=== PATIENT | male | born 1950 | race Caucasian/White ===

== ENCOUNTER 2017-07-15 17:35 | Observation (INO) | payer OTHER ==
[~2017-07-15] VITALS: Ht 185.4 cm; Wt 83.9 kg
[2017-07-15 17:40] VITALS: BP 142/71; PULSE 71; RESP 16; TEMP 97.9; O2SAT 96
[2017-07-15] MEDS ORDERED: ATOR10TA15 PO (18:51)
--- NOTE | 2017-07-15 19:14 | PD ---
HPI Chief Complaint: Chest Pain Time Seen by Provider: 18:44 Travel History International Travel<30 days: No Contact w/Intl Traveler<30days: No Traveled to known affect area: No History of Present Illness HPI 66yo M with HLD presents to the ED with multiple complaints. Said last night he started having right sided chest pain at 7 or 8pm that was sharp and radiated to right neck and shoulder. Associated with sob, nausea, diaphoresis. Pain is improved now but still there. Also with left calf pain since last night. Denies any fever, cough, n/v, focal weakness or numbness. Pt said he does have abdominal pain for months and has not seen anyone about it. Pt also said he had a study 6 years ago for possible PE but does not know the results of it and thinks it is fine. PFSH Past Medical History High Cholesterol: Yes Tetanus Vaccination: Unknown Influenza Vaccination: No Past Surgical History Appendectomy: Yes Social History Alcohol Use: Yes (occassionally ) Tobacco Use: No Substance Use: No Allergies-Medications (Allergen,Severity, Reaction): Coded Allergies: penicillin G (Unverified Allergy, Severe, 07/15/17) iodine (Verified Allergy, Unknown, 07/15/17) Reported Meds & Prescriptions Reported Meds & Active Scripts Active Reported Atorvastatin (Atorvastatin Calcium) 10 Mg Tab 10 Mg PO HS Review of Systems Except as stated in HPI: all other systems reviewed are Neg Physical Exam Narrative GENERAL: 66yo M not in distress. SKIN: Focused skin assessment warm/dry. HEAD: Atraumatic. Normocephalic. EYES: Pupils equal and round. No scleral icterus. No injection or drainage. ENT: No nasal bleeding or discharge. Mucous membranes pink and moist. NECK: Trachea midline. No JVD. CARDIOVASCULAR: Regular rate and rhythm. No murmur appreciated. RESPIRATORY: No accessory muscle use. Clear to auscultation. Breath sounds equal bilaterally. GASTROINTESTINAL: Abdomen soft, +TTP LLQ. No rebound tenderness or guarding. MUSCULOSKELETAL: LLE: +Calf tenderness to palpation. No edema. Distal pulses intact. Sensation intact. FROM left hip and knee. NEUROLOGICAL: Awake and alert. No obvious cranial nerve deficits. Motor grossly within normal limits. Normal speech. PSYCHIATRIC: Appropriate mood and affect; insight and judgment normal. Data Data Last Documented VS Vital Signs Date Time Temp Pulse Resp B/P (MAP) Pulse Ox O2 Delivery O2 Flow Rate FiO2 07/15/17 20:16 75 18 133/75 (94) 99 Room Air 07/15/17 17:40 97.9 Orders Orders Basic Metabolic Panel (Bmp) (07/15/17 19:05) Complete Blood Count With Diff (07/15/17 19:05) D-Dimer (07/15/17 19:05) Magnesium (Mg) (07/15/17 19:05) Prothrombin Time / Inr (Pt) (07/15/17 19:05) Act Partial Throm Time (Ptt) (07/15/17 19:05) Troponin I (07/15/17 19:05) Chest, Single Ap (07/15/17 19:05) Us Leg Venous Doppler (07/15/17 ) Ct Abd/Pel W/O Iv Contrast (07/15/17 ) Urinalysis - C+S If Indicated (07/15/17 19:07) Aspirin (Aspirin) (07/15/17 20:45) Aspirin Chew (Aspirin Chew) (07/15/17 20:45) Labs Laboratory Tests Test 07/15/17 19:18 07/15/17 19:22 White Blood Count 5.9 TH/MM3 Red Blood Count 4.67 MIL/MM3 Hemoglobin 13.6 GM/DL Hematocrit 41.4 % Mean Corpuscular Volume 88.7 FL Mean Corpuscular Hemoglobin 29.1 PG Mean Corpuscular Hemoglobin Concent 32.8 % Red Cell Distribution Width 12.0 % Platelet Count 191 TH/MM3 Mean Platelet Volume 7.9 FL Neutrophils (%) (Auto) 58.5 % Lymphocytes (%) (Auto) 24.0 % Monocytes (%) (Auto) 7.4 % Eosinophils (%) (Auto) 8.2 % Basophils (%) (Auto) 1.9 % Neutrophils # (Auto) 3.5 TH/MM3 Lymphocytes # (Auto) 1.4 TH/MM3 Monocytes # (Auto) 0.4 TH/MM3 Eosinophils # (Auto) 0.5 TH/MM3 Basophils # (Auto) 0.1 TH/MM3 CBC Comment DIFF FINAL Differential Comment Prothrombin Time 11.0 SEC Prothromb Time International Ratio 1.1 RATIO Activated Partial Thromboplast Time 27.8 SEC D-Dimer Quantitative (PE/DVT) 0.32 MG/L FEU Blood Urea Nitrogen 15 MG/DL Creatinine 0.94 MG/DL Random Glucose 138 MG/DL Calcium Level 8.2 MG/DL Magnesium Level 2.3 MG/DL Sodium Level 139 MEQ/L Potassium Level 3.8 MEQ/L Chloride Level 106 MEQ/L Carbon Dioxide Level 28.5 MEQ/L Anion Gap 5 MEQ/L Estimat Glomerular Filtration Rate 80 ML/MIN Troponin I LESS THAN 0.02 NG/ML Urine Color YELLOW Urine Turbidity CLEAR Urine pH 6.5 Urine Specific [place] 1.012 Urine Protein NEG mg/dL Urine Glucose (UA) NEG mg/dL Urine Ketones NEG mg/dL Urine Occult Blood NEG Urine Nitrite NEG Urine Bilirubin NEG Urine Leukocyte Esterase NEG Urine Squamous Epithelial Cells 0-5 /hpf Microscopic Urinalysis Comment CULT NOT INDICATED MDM Medical Decision Making Medical Screen Exam Complete: Yes Emergency Medical Condition: Yes Interpretation(s) EKG: NSR 66bpm. Normal axis. Q wave III. No ST segment elevation or depression. Differential Diagnosis ACS vs. pneumonia vs. musculoskeletal pain Narrative Course 66yo M with atypical chest pain. Labs reviewed, no leukocytosis. H/H normal. Troponin negative. D-dimer negative. UA negative. CXR negative. CT a/p showed no acute abdominal or pelvic pathology. Enlarge prostate gland. Low density areas in both kidneys. Informed pt to follow up as outpatient. Left lower extremity US showed no DVT. 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 Doherty in six years. I discussed with patient and he agrees with serial EKG and cardiac enzymes in chest pain center. Diagnosis Primary Impression: Chest pain Qualified Codes: R07.9 - Chest pain, unspecified Admitting Information Admitting Physician Requests: Rebeca Piña DO Jul 15, 2017 19:14
[2017-07-15 19:25] VITALS: BP 132/74; PULSE 70; RESP 16; O2SAT 98
[2017-07-15 19:29] LABS: AUTOMATED NEUTROPHIL # 3.5 TH/MM3 (1.8-7.7); BASOPHIL # 0.1 TH/MM3 (0-0.2); BASOPHIL % 1.9 % (0.0-2.0); EOSINOPHIL # 0.5 TH/MM3 (0-0.4); EOSINOPHIL % 8.2 % (0.0-4.0); HEMATOCRIT 41.4 % (39.0-51.0); HEMOGLOBIN 13.6 GM/DL (13.0-17.0); LYMPHOCYTE # 1.4 TH/MM3 (1.0-4.8); MEAN CELL VOLUME 88.7 FL (80.0-100.0); MEAN CORPUSCULAR HEMOGLOBIN 29.1 PG (27.0-34.0); MEAN CORPUSCULAR HGB CONC 32.8 % (32.0-36.0); MEAN PLATELET VOLUME 7.9 FL (7.0-11.0); MONO % 7.4 % (0.0-8.0); MONOCYTE # 0.4 TH/MM3 (0-0.9); NEUT % 58.5 % (16.0-70.0); PLATELET COUNT 191 TH/MM3 (150-450); RED BLOOD COUNT 4.67 MIL/MM3 (4.50-5.90); WHITE BLOOD COUNT 5.9 TH/MM3 (4.0-11.0)
[2017-07-15 19:33] LABS: BILIRUBIN, URINE NEG (NEG); BLOOD, URINE NEG (NEG); GLUCOSE,URINE NEG (NEG); KETONE, URINE NEG (NEG); NITRITE,URINE NEG (NEG); PH, URINE 6.5 (5.0-8.5); URINE LEUKOCYTE ESTERASE NEG (NEG)
[2017-07-15 19:38] LABS: CHLORIDE 106 MEQ/L (98-107); SODIUM (NA) 139 MEQ/L (136-145)
[2017-07-15 19:41] LABS: BICARBONATE 28.5 MEQ/L (21.0-32.0); CALCIUM 8.2 MG/DL (8.5-10.1); GLUCOSE,RANDOM 138 MG/DL (74-106); MAGNESIUM 2.3 MG/DL (1.5-2.5)
[2017-07-15 19:42] LABS: BLOOD UREA NITROGEN 15 MG/DL (7-18)
[2017-07-15 19:44] LABS: URINE COLOR YELLOW (YELLW/STRAW)
[2017-07-15 19:45] LABS: SQUAMOUS EPITHELIAL CELL URINE 0-5 /hpf (0-5)
[2017-07-15 19:45] LABS: CREATININE 0.94 MG/DL (0.60-1.30); GLOMERULAR FILTRATION RATE 80 ML/MIN (>89)
[2017-07-15 19:50] LABS: TROPONIN I LESS THAN 0.02 NG/ML (0.02-0.05)
[2017-07-15 19:59] LABS: INTERNATIONAL NORMALIZED RATIO 1.1 RATIO
--- NOTE | 2017-07-15 20:00 | RADRPT ---
EXAM DATE/TIME: 07/15/2017 19:26 [facility] COMPARISON: No previous studies available for comparison. INDICATIONS : Left lower quadrant pain. ORAL CONTRAST: No oral contrast ingested. RADIATION DOSE: 12.58 CTDIvol (mGy) MEDICAL HISTORY : None SURGICAL HISTORY : Appendectomy. ENCOUNTER: Initial ACUITY: 1 day PAIN SCALE: 6/10 LOCATION: Left lower quadrant TECHNIQUE: Volumetric scanning of the abdomen and pelvis was performed. Using automated exposure control and ad justment of the mA and/or kV according to patient size, radiation dose was kept as low as reasonably achievable to obtain optimal diagnostic quality images. DICOM format image data is available electro nically for review and comparison. The lack of IV contrast limits the diagnosis for certain organ pa thology. FINDINGS: LOWER LUNGS: The visualized lower lungs are clear. LIVER: Homogeneous density without lesion. There is no dilation of the biliary tree. No calcified gallston es. SPLEEN: Normal size without lesion. PANCREAS: Within normal limits. KIDNEYS: Normal in size and shape. There is no mass, stone, or hydronephrosis. There is a 3 cm right parapelv ic cyst along the lower pole. A few small low-density lesions are seen along the peripheral aspect of both kidneys most likely representing cysts. ADRENAL GLANDS: Within normal limits. VASCULAR: There is no aortic aneurysm. BOWEL/MESENTERY: The stomach, small bowel, and colon demonstrate no acute abnormality. There is no free intraperitone al air or fluid. No inflammatory changes are seen. There is some stool throughout the colon. No signi ficant diverticular disease is demonstrated. ABDOMINAL WALL: Within normal limits. RETROPERITONEUM: There is no lymphadenopathy. BLADDER: The urinary bladder is decompressed. No stones are demonstrated. REPRODUCTIVE: The prostate gland measures 5.3 cm. INGUINAL: There is no lymphadenopathy or hernia. MUSCULOSKELETAL: Within normal limits for patient age. CONCLUSION: 1. No acute abdominal or pelvic pathology. 2. 3 cm right parapelvic cyst along the lower pole. 3. A few low-density areas are seen adjacent to both kidneys most likely representing renal cysts. If clinically indicated, a dedicated ultrasound of the kidneys on a nonemergent outpatient basis could be performed for further evaluation. 4. There is diffuse enlargement of the prostate gland measuring 5.3 cm. Collin Pineda MD on July 15, 2017 at 19:52 Board Certified Radiologist. This report was verified electronically.
--- NOTE | 2017-07-15 20:03 | RADRPT ---
EXAM DATE/TIME: 07/15/2017 19:33 [facility] COMPARISON: No previous studies available for comparison. INDICATIONS : Chest pain. MEDICAL HISTORY : None. SURGICAL HISTORY : None. ENCOUNTER: Initial ACUITY: 1 day PAIN SCORE: 4/10 LOCATION: Right chest FINDINGS: A single view of the chest demonstrates the lungs to be symmetrically aerated without evidence of mas s, infiltrate or effusion. The cardiomediastinal contours are unremarkable. Osseous structures are intact. CONCLUSION: Normal examination for a patient of this age. Collin Pineda MD on July 15, 2017 at 20:00 Board Certified Radiologist. This report was verified electronically.
--- NOTE | 2017-07-15 20:05 | RADRPT ---
EXAM DATE/TIME: 07/15/2017 19:42 [facility] COMPARISON: No previous studies available for comparison. INDICATIONS : Left leg pain. MEDICAL HISTORY : Hypercholesterolemia. Anticoagulant therapy, Aspirin 81mg. SURGICAL HISTORY : Appendectomy. ENCOUNTER: Initial ACUITY: 2 months PAIN SCORE: 5/10 LOCATION: Left leg. TECHNIQUE: Venous ultrasound of the leg was performed from the inguinal ligament to the proximal calf. Real-magalie e, color Doppler and spectral tracing, compression and augmentation techniques were used. FINDINGS: There is normal compressibility of the deep venous system from the inguinal region to the proximal ca lf. No echogenic clot is seen in the lumen of the common femoral, femoral, popliteal, and posterior tibial veins. There is a normal response of the venous system to proximal and distal augmentation an d respiration. CONCLUSION: No evidence of DVT. Collin Pineda MD on July 15, 2017 at 20:02 Board Certified Radiologist. This report was verified electronically.
[2017-07-15 20:12] LABS: D-DIMER 0.32 MG/L FEU (0.00-0.50)
[2017-07-15 20:16] VITALS: BP 133/75; PULSE 75; RESP 18; O2SAT 99
[2017-07-15] MEDS ORDERED: ASPIRIN 81 MG CHEW TAB PO ONE (20:45)
[2017-07-15] MEDS ORDERED: ASPIRIN 325 MG TAB PO ONE (20:45)
[2017-07-15 21:09] VITALS: BP 149/88; PULSE 58; RESP 18; O2SAT 98
[2017-07-15] MEDS ORDERED: ONDANSETRON HCL 4 MG/2 ML VIAL IV PUSH PRN (21:15)
[2017-07-15] MEDS ORDERED: ACETAMINOPHEN 500 MG CPLT PO PRN (21:15)
[2017-07-15] MEDS ORDERED: MORPHINE SULFATE 2 MG/ML INJ IV PUSH PRN (21:15)
[2017-07-15] MEDS ORDERED: SODIUM CHLORIDE 0.9% FLUSH 10 ML FLUSH IV FLUSH PRN (21:15)
[2017-07-15] MEDS: SODIUM CHLOR 0.9% 1000 ML INJ 1,000 ML IV SCH (22:34)
[2017-07-15] MEDS: HEPARIN SODIUM - SQ 10,000 UNITS/ML VIAL SQ SCH (22:34)
[2017-07-15 22:45] VITALS: BP 145/68; TEMP 97.9
[2017-07-15 23:00] VITALS: PULSE 60
[2017-07-15 23:16] LABS: TROPONIN I LESS THAN 0.02 NG/ML (0.02-0.05)
[2017-07-16] VITALS: BP 138/78; PULSE 55; RESP 18; TEMP 96.3; O2SAT 96
[2017-07-16 01:25] VITALS: O2SAT 96
[2017-07-16 02:32] LABS: TROPONIN I LESS THAN 0.02 NG/ML (0.02-0.05)
[2017-07-16] MEDS: HEPARIN SODIUM - SQ 10,000 UNITS/ML VIAL SQ SCH ×2 (05:20→14:00)
[2017-07-16 06:32] VITALS: BP 125/68; PULSE 56; RESP 18; TEMP 97.5; O2SAT 95
[2017-07-16] MEDS: SODIUM CHLOR 0.9% 1000 ML INJ 1,000 ML IV SCH (07:03)
[2017-07-16 08:00] VITALS: BP 118/69; PULSE 59; RESP 16; TEMP 96.6; O2SAT 95
[2017-07-16] MEDS ORDERED: SODIUM CHLORIDE 0.9% FLUSH 10 ML FLUSH IV FLUSH SCH (09:00)
--- NOTE | 2017-07-16 10:10 | HHI.HP ---
[facility] Service [facility] Primary Care Physician Hernán Abbasi MD Admission Diagnosis Chest pain Diagnoses: Chief Complaint: Chest pain Travel History International Travel<30 Days: No Contact w/Intl Traveler <30 Da: No Traveled to Known Affected Are: No History of Present Illness Written by Sherlyn Cohen, acting as scribe for Dr. Ferro on 07/16/17 at 10:09. This is a pleasant 66-year-old male patient with unknown medical history of hyperlipidemia who presented to the ED with complaints of chest pain. Patient states that the chest pain started last evening in his right sided chest area around twenty hundred, characterized the pain as sharp in nature and radiates to the right neck and shoulder. Patient does admit to associated shortness of breath, nausea and diaphoresis. Denies any associated vomiting. Patient also complains of left calf pain. States he took an aspirin at home which did not relieve the pain. Denies ever having this pain in the past. At the time of assessment patient states the pain has improved but is still present. Denies any recent illness including fever, cough, nausea or vomiting, abdominal pain or diarrhea. Patient does admit that around seven years ago he was admitted to the hospital for evaluation of PE which was negative. Denies having a previous stress test in the past. Review of Systems Constitutional: DENIES: Fever, Chills Endocrine: DENIES: Heat/cold intolerance Eyes: DENIES: Blurred vision, Diplopia Respiratory: COMPLAINS OF: Shortness of breath, DENIES: Cough Cardiovascular: COMPLAINS OF: Chest pain, DENIES: Palpitations Gastrointestinal: COMPLAINS OF: Nausea, DENIES: Abdominal pain, Black stools, Bloody stools, Constipation, Diarrhea, Vomiting Musculoskeletal: DENIES: Joint pain Integumentary: DENIES: Abnormal pigmentation Hematologic/lymphatic: DENIES: Bruising Immunologic/allergic: DENIES: Eczema Neurologic: DENIES: Abnormal gait Psychiatric: COMPLAINS OF: Anxiety Except as stated in HPI: all other systems reviewed are Neg Past Family Social History Past Medical History Hyperlipidemia Past Surgical History Appendectomy Reported Medications Active Reported Atorvastatin (Atorvastatin Calcium) 10 Mg Tab 10 Mg PO HS Allergies: Coded Allergies: penicillin G (Unverified Allergy, Severe, 07/15/17) iodine (Verified Allergy, Unknown, 07/15/17) Active Ordered Medications Current Medications Medications (Trade) Dose Ordered Sig/Reinaldo Route Start Time Stop Time Status Last Admin Sodium Chloride 1,000 ml @ 100 mls/hr Q10H IV 07/15/17 21:03 07/15/17 22:34 (NS Flush) 2 ml UNSCH PRN IV FLUSH 07/15/17 21:15 (NS Flush) 2 ml BID IV FLUSH 07/16/17 09:00 (Tylenol) 500 mg Q4H PRN PO 07/15/17 21:15 07/16/17 09:49 (Morphine Inj) 2 mg Q4H PRN IV PUSH 07/15/17 21:15 (Zofran Inj) 4 mg Q6H PRN IV PUSH 07/15/17 21:15 (Heparin Inj) 5,000 units Q8HR SQ 07/15/17 22:00 07/15/17 22:34 Family History Maternal medical history significant for blood clot. Denies any significant cardiovascular disease in family history. Social History Denies any tobacco, alcohol or illicit drug use. Physical Exam Vital Signs Vital Signs Date Time Temp Pulse Resp B/P (MAP) Pulse Ox O2 Delivery O2 Flow Rate FiO2 07/16/17 08:00 96.6 59 16 118/69 (85) 95 07/16/17 06:32 97.5 56 18 125/68 (87) 95 07/16/17 01:25 96 21 07/16/17 00:00 96.3 55 18 138/78 (98) 96 07/15/17 23:00 60 07/15/17 22:45 97.9 68 16 145/68 (93) 100 07/15/17 21:09 58 18 149/88 (108) 98 Room Air 07/15/17 20:16 75 18 133/75 (94) 99 Room Air 07/15/17 19:25 70 16 132/74 (93) 98 Room Air 07/15/17 18:54 18 97 Room Air 07/15/17 17:40 97.9 71 16 142/71 (94) 96 Physical Exam GENERAL: Well-nourished, well-developed patient in NAD. SKIN: Warm and dry. No rash. HEAD: Normocephalic. Atraumatic. EYES: Pupils equal and round. No scleral icterus. No injection or drainage. ENT: No nasal bleeding or discharge. Mucous membranes pink and moist. NECK: Supple. Trachea midline. CARDIOVASCULAR: Regular rate and rhythm. S1, S2 noted. No murmur appreciated. No reproducible chest pain to palpation. RESPIRATORY: No accessory muscle use. Clear to auscultation. Breath sounds equal bilaterally. GASTROINTESTINAL: Abdomen soft, non-tender, nondistended. Normoactive bowel sounds x4. MUSCULOSKELETAL: No obvious deformities. Extremities without clubbing, cyanosis , or edema. NEUROLOGICAL: Awake and alert. No obvious cranial nerve deficits. Motor grossly within normal limits. 5/5 muscle strength in bilateral upper and lower extremities. Normal speech. PSYCHIATRIC: Appropriate mood and affect; insight and judgment normal. Laboratory Laboratory Tests Test 07/15/17 19:18 07/15/17 19:22 07/15/17 22:50 07/16/17 01:30 White Blood Count 5.9 Red Blood Count 4.67 Hemoglobin 13.6 Hematocrit 41.4 Mean Corpuscular Volume 88.7 Mean Corpuscular Hemoglobin 29.1 Mean Corpuscular Hemoglobin Concent 32.8 Red Cell Distribution Width 12.0 Platelet Count 191 Mean Platelet Volume 7.9 Neutrophils (%) (Auto) 58.5 Lymphocytes (%) (Auto) 24.0 Monocytes (%) (Auto) 7.4 Eosinophils (%) (Auto) 8.2 Basophils (%) (Auto) 1.9 Neutrophils # (Auto) 3.5 Lymphocytes # (Auto) 1.4 Monocytes # (Auto) 0.4 Eosinophils # (Auto) 0.5 Basophils # (Auto) 0.1 CBC Comment DIFF FINAL Differential Comment Prothrombin Time 11.0 Prothromb Time International Ratio 1.1 Activated Partial Thromboplast Time 27.8 D-Dimer Quantitative (PE/DVT) 0.32 Blood Urea Nitrogen 15 Creatinine 0.94 Random Glucose 138 Calcium Level 8.2 Magnesium Level 2.3 Sodium Level 139 Potassium Level 3.8 Chloride Level 106 Carbon Dioxide Level 28.5 Anion Gap 5 Estimat Glomerular Filtration Rate 80 Troponin I LESS THAN 0.02 LESS THAN 0.02 LESS THAN 0.02 Urine Color YELLOW Urine Turbidity CLEAR Urine pH 6.5 Urine Specific [place] 1.012 Urine Protein NEG Urine Glucose (UA) NEG Urine Ketones NEG Urine Occult Blood NEG Urine Nitrite NEG Urine Bilirubin NEG Urine Leukocyte Esterase NEG Urine Squamous Epithelial Cells 0-5 Microscopic Urinalysis Comment CULT NOT INDICATED Total Creatine Kinase 139 111 Creatine Kinase MB 1.6 1.4 Result Diagram: 07/15/17191707/15/171917 Imaging Last Impressions Chest X-Ray 07/15/171904 Signed Impressions: Service Date/Time: Saturday, July 15, 2017 19:33 - CONCLUSION: Normal examination for a patient of this age. Collin Pineda MD Lower Extremity Ultrasound 07/15/17 0000 Signed Impressions: Service Date/Time: Saturday, July 15, 2017 19:42 - CONCLUSION: No evidence of DVT. Collin Pineda MD Abdomen/Pelvis CT 07/15/17 0000 Signed Impressions: Service Date/Time: Saturday, July 15, 2017 19:26 - CONCLUSION: 1. No acute abdominal or pelvic pathology. 2. 3 cm right parapelvic cyst along the lower pole. 3. A few low-density areas are seen adjacent to both kidneys most likely representing renal cysts. If clinically indicated, a dedicated ultrasound of the kidneys on a nonemergent outpatient basis could be performed for further evaluation. 4. There is diffuse enlargement of the prostate gland measuring 5.3 cm. Collin Pineda MD Septic Shock Reassessment Septic shock perfusion: reassessment completed Caprini VTE Risk Assessment Caprini VTE Risk Assessment: No/Low Risk (score <= 1) Caprini Risk Assessment Model Point Value = 1 Point Value = 2 Point Value = 3 Point Value = 5 Age 41-60 Minor surgery BMI > 25 kg/m2 Swollen legs Varicose veins or History of unexplained or recurrent spontaneous Oral contraceptives or hormone replacement Sepsis (< 1 month) Serious lung disease, including pneumonia (< 1 month) Abnormal pulmonary function Acute myocardial infarction Congestive heart failure (< 1 month) History of inflammatory bowel disease Medical patient at bed rest Age 61-74 Arthroscopic surgery Major open surgery (> 45 min) Laparoscopic surgery (> 45 min) Malignancy Confined to bed (> 72 hours) Immobilizing plaster cast Central venous access Age >= 75 History of VTE Family history of VTE Factor V Leiden Prothrombin [id number] Lupus anticoagulant Anticardiolipin antibodies Elevated serum homocysteine Heparin-induced thrombocytopenia Other congenital or acquired thrombophilia Stroke (< 1 month) Elective arthroplasty Hip, pelvis, or leg fracture Acute spinal cord injury (< 1 month) Prophylaxis Regimen Total Risk Factor Score Risk Level Prophylaxis Regimen 0-1 Low Early ambulation 2 Moderate Order ONE of the following: *Sequential Compression Device (SCD) *Heparin 5000 units SQ BID 3-4 Higher Order ONE of the following medications: *Heparin 5000 units SQ TID *Enoxaparin/Lovenox 40 mg SQ daily (WT < 150 kg, CrCl > 30 mL/min) *Enoxaparin/Lovenox 30 mg SQ daily (WT < 150 kg, CrCl > 10-29 mL/min) *Enoxaparin/Lovenox 30 mg SQ BID (WT < 150 kg, CrCl > 30 mL/min) AND/OR *Sequential Compression Device (SCD) 5 or more Highest Order ONE of the following medications: *Heparin 5000 units SQ TID (Preferred with Epidurals) *Enoxaparin/Lovenox 40 mg SQ daily (WT < 150 kg, CrCl > 30 mL/min) *Enoxaparin/Lovenox 30 mg SQ daily (WT < 150 kg, CrCl > 10-29 mL/min) *Enoxaparin/Lovenox 30 mg SQ BID (WT < 150 kg, CrCl > 30 mL/min) AND *Sequential Compression Device (SCD) Assessment and Plan Problem List: (1) Chest pain ICD Code: R07.9 - Chest pain, unspecified Status: Acute Plan: Patient has been admitted to the chest pain center for observation. Serial EKGs and serial troponins have been ordered for ruling out ACS purposes. Troponin trend flat. EKG reviewed showing normal sinus rhythm, heart rate controlled. No ST changes to indicate ischemia. Continue cardiac telemetry, monitor any arrhythmias. CBC and BMP reviewed essentially unremarkable. Chest x-ray reviewed showing no acute disease. Lipid panel ordered, pending. Follow. Lower extremity ultrasound reviewed showing no DVT. Abdominal pelvis CT reviewed showing no acute abnormality. Showing bilateral renal cysts, encouraged to follow-up in outpatient setting. Patient was given aspirin in the ED. Morphine IV available when necessary as needed for chest pain. Nitroglycerin glycerin sublingual available when necessary. Patient will undergo a treadmill cardiac stress test to further rule out any ischemia if ACS ruled out. Further recommendations and hospitalization will depend on treadmill results. Continue to follow. Patient is stable at this time and agreeable to the plan. Assessment and Plan Patient underwent cardiac treadmill stress test. Images reviewed by on-call microsoft access developer, Dr. Zambrano, who indicated no ischemia. Patient will be discharged home. Patient encouraged to return to the ED if symptoms persist or worsen. Patient is stable at this time and agreeable to the plan. Discussed Condition With This note was transcribed by scribe [Sherlyn Cohen]. I, Dr. Nabil Ferro personally performed the history, physical exam, and medical decision making; and confirmed the accuracy of the information in the transcribed note. Authenticated by Dr. Nabil Ferro on 07/16/17 at 13:44. Problem Qualifiers (1) Chest pain: Qualified Codes: R07.9 - Chest pain, unspecified Sherlyn Cohen Jul 16, 2017 10:10 Nabil Ferro MD Jul 16, 2017 13:44
[2017-07-16 11:09] LABS: CHOLESTEROL/ HDL RATIO 3.17 RATIO; HDL CHOLESTEROL 54.1 MG/DL (40.0-60.0)
[2017-07-16] MEDS ORDERED: NAPR500T2 PO (13:10)
--- NOTE | 2017-07-16 13:10 | HHI.DCPOC ---
Discharge Care Plan Diagnosis: (1) Chest pain Goals to Promote Your Health * To prevent worsening of your condition and complications * To maintain your health at the optimal level Directions to Meet Your Goals Take your medications as prescribed Follow your dietary instruction Follow activity as directed Keep your appointments as scheduled Take your immunizations and boosters as scheduled If your symptoms worsen call your PCP, if no PCP go to Urgent Care Center or Emergency Room Smoking is Dangerous to Your Health. Avoid second hand smoke Call the 24-hour hour crisis hotline for domestic abuse at Sherlyn Cohen Jul 16, 2017 13:10
--- NOTE | 2017-07-16 13:53 | EKG ---
Date Performed: 07/15/2017 Time Performed: 17:44:03 PTAGE: 66 years EKG: Sinus rhythm POSSIBLE INFERIOR MYOCARDIAL INFARCTION BORDERLINE ECG Since PREVIOUS TRACING , no significant change noted PREVIOUS TRACIN07/31/2005 18.14 DOCTOR: Lizabeth Zambrano Interpretating Date/Time 07/16/2017 13:51:31
--- NOTE | 2017-07-16 13:54 | EKG ---
Date Performed: 07/15/2017 Time Performed: 22:38:13 PTAGE: 66 years EKG: SINUS BRADYCARDIA BORDERLINE ECG Since PREVIOUS TRACING , no significant change noted PREVIOUS TRACIN07/15/2017 17.44 DOCTOR: Lizabeth Zambrano Interpretating Date/Time 07/16/2017 13:52:09
--- NOTE | 2017-07-16 17:42 | EKG ---
Date Performed: 07/16/2017 Time Performed: 01:22:36 PTAGE: 66 years EKG: SINUS BRADYCARDIA BORDERLINE ECG Since PREVIOUS TRACING , no significant change noted PREVIOUS TRACIN07/15/2017 22.38 DOCTOR: Lizabeth Zambrano Interpretating Date/Time 07/16/2017 17:40:30
--- NOTE | 2017-07-18 06:28 | TR ---
Date Performed: 07/16/2017 Time Performed: 12:17:14 DOCTOR: Lizabeth Zambrano DRUG LIST: CLINICAL HISTORY: REASON FOR TEST: Chest pain REASON FOR ENDING: OBSERVATION: CONCLUSION: Pj protocol performed test stopped secondary to reaching target heart rate and le g fatigue. Fair exercise tolerance. No reproducible chest pain. Good BP response. Maximum EL=959 Targ et HR Whsksjgg=096.0% Maximum MJ=871/80Total Exercise Time=4:58 COMMENTS:
== END 2017-07-16 15:32 | disposition home or self-care (01) ==
LOC: PHED 17:35 → PHEDA 21:05 → PH3A 22:45
PROVIDERS: ADMIT Hospitalist; ATTEND Hospitalist
DX: R07.89 Other chest pain (principal); R06.02 Shortness of breath; R11.0 Nausea; R61 Generalized hyperhidrosis; R10.32 Left lower quadrant pain; R00.1 Bradycardia, unspecified; M79.662 Pain in left lower leg; E78.00 Pure hypercholesterolemia, unspecified; N28.1 Cyst of kidney, acquired; N40.0 Benign prostatic hyperplasia without lower urinary tract symptoms; Z79.899 Other long term (current) drug therapy; Z79.01 Long term (current) use of anticoagulants
CPT/HCPCS: 71045; 74176; 80048; 80061; 81001; 82550; 82552; 83735; 84484; 85025; 85379; 85610; 85730; 93005; 93017; 93971; 96360; 96372; 99285; G0378; J1644; J7030